=== PATIENT | male | born 1950 | race American Indian/Alaskan Native ===

== ENCOUNTER 2017-03-17 06:55 | Day surgery (SDC) | payer MEDICARE, OTHER ==
[~2017-03-17 06:55] MED LIST: ANCEF/STERILE WATER 2 GM/20 ML IV NR
[2017-03-17] MEDS ORDERED: DIPRIVAN 10 MG/ML IV ONE (07:25)
[2017-03-17] MEDS ORDERED: SUBLIMAZE ONE (07:25)
[2017-03-17] MEDS ORDERED: NACL 0.9% 1000 ML 1,000 ML ONE ×2 (08:01→09:01)
[2017-03-17] MEDS ORDERED: XYLOCAINE MPF 2% ONE (08:27)
[2017-03-17] MEDS ORDERED: NACL 0.9% 1000 ML 1,000 ML IV SCH (08:27)
[2017-03-17] MEDS ORDERED: PEPCID PO NR (08:27)
[2017-03-17] MEDS ORDERED: ROBINUL ONE (08:27)
[2017-03-17] MEDS ORDERED: VERSED IV NR (08:27)
--- NOTE | 2017-03-17 08:33 | Anesthesia Consultation ---
Anesthesia Consult and Med Hx Date of service: 03/17/17 - Airway Anesthetic Teeth Evaluation: Dentures ROM Head & Neck: Adequate Mental/Hyoid Distance: Adequate Mallampati Class: Class II Intubation Access Assessment: Probably Good - Pulmonary Exam CTA: Yes - Cardiac Exam Cardiac Exam: RRR - Pre-Operative Health Status ASA Pre-Surgery Classification: ASA3 Proposed Anesthetic Plan: General - Pulmonary Hx Smoking: No Hx Sleep Apnea: No (PAIGE PRE SCREEN HIGH RISK) - Cardiovascular System Hx Hypertension: Yes (X 40 YRS, high cholesterol) Hx Peripheral Vascular Disease: Yes (LEGS, angioplasty left leg) - Central Nervous System Hx Neuromuscular Disorder: No Hx Psychiatric Problems: No - Gastrointestinal Hx Gastroesophageal Reflux Disease: No - Endocrine Hx Insulin Dependent Diabetes: Yes - Hematic Hx Anemia: No Hx Sickle Cell Disease: No - Other Systems Hx Alcohol Use: No Hx Substance Use: No Hx Cancer: No Hx Obesity: No
--- NOTE | 2017-03-17 08:34 | Anesthesia Day of Surgery ---
Anesthesia Day of Surgery - Day of Surgery Patient Examined: Yes Patient H&P Reviewed: Yes Patient is NPO: Yes
[2017-03-17] MEDS ORDERED: PROAIR IH ONE (08:51)
[2017-03-17] MEDS ORDERED: NACL 0.9% IR ONE (09:16)
[2017-03-17] MEDS ORDERED: ZOFRAN ONE (09:30)
[2017-03-17] MEDS ORDERED: DECADRON ONE (09:30)
[2017-03-17] MEDS ORDERED: NEO SYNEPHRINE/NS Syringe(OR USE) IV ONE (09:30)
--- NOTE | 2017-03-17 09:40 | Short Stay Summary ---
Short Stay Documentation Date of service: 03/17/17 - History H&P: obtained from office - Allergies and Medications Current Medications: Allergies No Known Allergies Allergy (Verified 03/12/17 16:25) Home Medications Medication Instructions Recorded Confirmed Last Taken Type AtorvaSTATin [Lipitor] 40 mg PO QHS 03/12/17 03/12/17 03/16/17 History Chlorthalidone 25 mg PO DAILY 03/12/17 03/12/17 03/17/17 06:00 History Irbesartan [Avapro] 300 mg PO DAILY 03/12/17 03/12/17 03/17/17 06:00 History Latanoprost 0.005% [Xalatan 0.005%] 1 drop OP QPM 03/12/17 03/12/17 03/16/17 History amLODIPine [Norvasc] 10 mg PO DAILY 03/12/17 03/12/17 03/17/17 06:00 History metFORMIN 500 mg PO DAILY 03/12/17 03/12/17 03/16/17 History Active Medications Cefazolin Sodium (Ancef/Sterile Water 2 Gm/20 Ml) 2 gm IV PREOP NR Stop: 03/17/17 23:00 Famotidine (Pepcid) 20 mg PO PREOP NR Stop: 03/17/17 10:00 Last Admin: 03/17/17 08:30 Dose: 20 mg Sodium Chloride (Nacl 0.9% 1000 Ml) 1,000 mls @ 75 mls/hr IV DIRECT VITALY Last Admin: 03/17/17 08:15 Dose: 75 mls/hr Midazolam HCl (Versed) 2 mg IV PREOP NR Stop: 03/17/17 23:59 Last Admin: 03/17/17 08:32 Dose: 2 mg - Brief post op/procedure progress note Date of procedure: 03/17/17 Pre-op diagnosis: BILAT HYDROCELE Post-op diagnosis: same Procedure: bilat hydrocelectomy Anesthesia: GETA Surgeon: CANDELARIA WILCOX Pathology: list (sac) Specimen disposition: to lab Condition: stable - Hospital course Hospital course: norco & post op info on chart - Disposition Condition at discharge: Stable Disposition: DC-01 TO HOME OR SELFCARE Short Stay Discharge Plan Follow up with: AYESHA BANKS MD [Primary Care Provider] - 7 Days Forms: Outpatient Surgery DC Inst.
[2017-03-17] MEDS ORDERED: NORCO 5/325 PO ONE (09:56)
--- NOTE | 2017-03-17 13:16 | Operative Report ---
PREOPERATIVE DIAGNOSIS: Bilateral hydroceles. POSTOPERATIVE DIAGNOSES: Bilateral hydroceles. PROCEDURE: Bilateral hydrocelectomy with Kaveh drain. SURGEON: Maximilian Miller MD ANESTHESIA: General. ESTIMATED BLOOD LOSS: Minimal. FLUIDS: Crystalloid. COMPLICATIONS: No complications. INDICATIONS: This 66-year-old gentleman referred by Dr. Franks for evaluation of scrotal masses. They are approximately softball size bilaterally. Scrotal ultrasound, no tumors, it was consistent with bilateral hydroceles. Discussed options, the patient agreed to proceed with surgical intervention. DESCRIPTION OF PROCEDURE: The patient was taken to the operative suite, placed in a supine position. After adequate general anesthesia, he was prepped and draped in a sterile fashion. Midline median raphe, an incision was made in the scrotum. Sharp dissection was taken down to the tunica vaginalis. Right side was exposed, greater than softball size hydrocele could be appreciated. It was opened. Serosanguineous fluid was evacuated. Hydrocele sac was excised and sent for routine pathologic evaluation. A running whipstitch using 2-0 chromic was performed on the left side. Adequate hemostasis was achieved. Similar procedure was performed on the right side without difficulty. A small scrotal incision was made with the Bovie. A 1/2-inch Kaveh drain was brought out on the right hemiscrotum. Part of the drain was placed in both hemic compartments. Dartos layer was closed using 2-0 chromic in a running fashion. Septum was included in the closure, 2-0 chromic interrupted was used for the skin. The [place] was secured with a 2-0 chromic in an interrupted fashion. Scrotal support was placed. The patient tolerated the procedure well. He was extubated and taken to recovery room. He will go home on Alicia and follow up in the office. JOB# [id number] MAURO/ESPERANZA
[2017-03-17 13:21] VITALS: BP 147/86
== END 2017-03-17 13:00 | disposition home or self-care (01) ==
LOC: OR 06:55
PROVIDERS: ATTEND Urology
DX: N43.3 Hydrocele, unspecified (principal); I10 Essential (primary) hypertension; G47.33 Obstructive sleep apnea (adult) (pediatric); I73.9 Peripheral vascular disease, unspecified; Z98.890 Other specified postprocedural states; E11.9 Type 2 diabetes mellitus without complications
CPT/HCPCS: 55041; 82962; 88302; J0690; J1100; J2250; J2370; J2405; J2704; J3010; J7030